=== PATIENT | male | born 1970 | race Caucasian/White ===

== ENCOUNTER 2018-02-22 10:53 | Outpatient (CLI) | payer OTHER ==
[~2018-02-22] VITALS: Ht 185.4 cm; Wt 109.1 kg
--- NOTE | ~2018-02-22 | HEMODYNAMI ---
PATIENT:MY PAEZ MEDICAL RECORD: [id number] : 66 LOCATION:[facility] ADMISSION DATE: 02/22/18 Generatedon:02/22/201813:59 Patient name: MY PAEZ Patient #: [id number] SSN: : 1970 Date of study: 02/22/2018 Page: Of Hemodynamic Procedure Report Patient Data Patient Demographics Procedure consent was obtained First Name: MY Gender: Male Last Name: JEANNINE : 1970 Patient #: [id number] Age: 47 year(s) Race: Unknown Additional ID: [id number] Contact details [address]: [address] [place] [address] State: [place] City: [place] Zip code: [address] Past Medical History Allergies: No known allergies Admission Admission Data Admission Date: 02/22/2018 Admission Time: 10:53 Height (in.): 72.83 BSA: 2.32 (m2) Height (cm.): 185 BMI: 31.85 (kg/m2) Weight (lbs.): 240.31 Weight (kg.): 109 Lab Results Lab Result Date: 02/22/2018 Lab Result Time: 0:00 Biochemistry Name Units Result Min Max BUN mg/dl 13 --(--*-)-- 7 18 Creatinine mg/dl 0.7 --(*---)-- 0.6 1.3 CBC Name Units Result Min Max Hemoglobin g/dl 15.2 --(-*--)-- 13.5 17.5 Procedure Procedure Types Cath Procedure Diagnostic Procedure C LHC w/Coronaries Procedure Description Procedure Date Procedure Date: 02/22/2018 Procedure Start Time: 13:40 Procedure End Time: 13:58 Procedure Staff Name Function Bill May MD Performing Physician Sofie Araujo RT Monitor Malcolm Rivera RN Nurse Estela Feng RT Scrub Sabrina Hanna RN Resistor Tester Procedure Data Cath Procedure Fluoroscopy Diagnostic fluoroscopy Total fluoroscopy Time: 4.3 time: 4.3 min min Diagnostic fluoroscopy Total fluoroscopy dose: 897 dose: 897 mGy mGy Contrast Material Contrast Material Type Amount (ml) Isovue 300 68 Entry Location Entry Primary Successful Side Size Upsize Upsize Entry Closure Gifford ccessful Closure Location (Fr) 1 (Fr) 2 (Fr) Remarks Device Remarks Radial Right 6 Fr Mechanical artery Short Compression Estimated blood loss: 10 ml Diagnostic catheters Device Type Used For End Catheter Placement DIAGNOSTIC Silvino 110cm Procedure 5Fr catheter ([id number]) DIAGNOSTIC [place] 110cm 5 Procedure Fr catheter ([id number]) Procedure Complications No complications Procedure Medications Medication Administration Route Dosage 0.9% NaCl I.V. 100 ml/hr Oxygen etCO2 Nasal cannula 2 l/min Lidocaine 2% added to field 20 Heparin Flush Bag added to field 2 bags (1000units/500ml NS) Radial Cocktail added to field 1 syringe (Verapomil 2mg/Nitro 400mcg/Heparin 1500units) Versed I.V. 2 mg Fentanyl I.V. 50 mcg Versed I.V. 1 mg Fentanyl I.V. 25 mcg Hemodynamics Rest BSA: 2.32 (m2) HGB: 15.2 (g/dl) O2 Consumption: Estimated: 285.12 (ml/min) O2 Co nsumption indexed: Estimated:122.9 (ml/min/m) Heart Rate: 78 (bpm) Pressure Samples Time Site Value (mmHg) Purpose Heart Use Rate(bpm) 13:43 LV 112/-14,7 Snapshot 78 13:44 AO 89/52(65) Pullback 79 13:44 LV 103/-11,5 Pullback 79 Gradients Valve Time Site 1 Site 2 Mean SEP/DFP Peak To Heart Use (mmHg) (sec/min) Peak Rate (mmHg) (bpm) Aortic 13:44 LV AO 6 15 14 79 103/-11,5 89/52(65) Calculations Valve P-P Mean Valve Index Valve Source Name Gradient Area Flow (cm2) Aortic 14 6 14 6 Snapshots Pre Cath Intra NCS Post Cath Vital Signs Time Heart Resp SPO2 etCO2 NIBP Rhythm Pain Sedation Rate (ipm) (%) (mmHg) (mmHg) Status Level (bpm) 13:28:54 76 13 100 36.9 111/74(89) NSR 0 (11) 10(A) , No pain 13:33:02 74 11 98 38.3 112/69(90) NSR 0 (11) 10(A) , No pain 13:37:09 76 12 97 39.8 97/60(75) NSR 0 (11) 10(A) , No pain 13:41:15 76 10 98 38.3 97/60(81) NSR 0 (11) 10(A) , No pain 13:45:23 78 10 97 37.6 96/55(78) NSR 0 (11) 10(A) , No pain 13:49:27 76 11 97 39.1 100/64(82) NSR 0 (11) 10(A) , No pain 13:53:35 74 13 97 36.9 94/61(79) NSR 0 (11) 10(A) , No pain 13:57:38 72 12 98 36.9 108/64(80) NSR 0 (11) 10(A) , No pain Medications Time Medication Route Dose Verified Delivered Reason Notes E ffectiveness by by 13:28:09 0.9% NaCl I.V. 100 Bill Malcolm used for ml/hr Lalo Rivera panel assembler 13:28:28 Oxygen etCO2 2 l/min Bill Sabrina used for Nasal Lalo Hanna procedure cannula RN 13:28:33 Lidocaine 2% added 20ml Bill Bill for local to vial Lalo May MD anesthetic field 13:28:38 Heparin Flush added 2 bags Bill Sabrina used for Bag to Lalo Hanna procedure (1000units/500ml field RN NS) 13:28:46 Radial Cocktail added 1 Bill Bill used for (Verapomil to syringe Lalo May MD procedure 2mg/Nitro field 400mcg/Heparin 1500units) 13:40:35 Versed I.V. 2 mg Bill Sabrina for Lalo Hanna sedation RN 13:40:43 Fentanyl I.V. 50 mcg Bill Sabrina for Lalo Hanna sedation RN 13:46:54 Versed I.V. 1 mg Bill Sabrina for Lalo Hanna sedation RN 13:46:59 Fentanyl I.V. 25 mcg Bill Sabrina for Lalo Hanna sedation boiler helper Log Time Note 12:17:21 Patient Height : 72.83 inches 12:17:29 Patient Weight : 240.31 lbs 12:17:53 Lab Result : BUN 13 mg/dl 12:17:53 Lab Result : Hemoglobin 15.2 g/dl 12:17:53 Lab Result : Creatinine 0.7 mg/dl 12:39:30 Malcolm Rivera RN sent for patient. Start room use. 12:39:31 Time tracking: Regular hours (M-F 7:00 - 5:00) 12:39:35 Plan of Care:Hemodynamics will remain stable., Cardiac rhythm will remain stable., Comfort level will be maintained., Respiratory function will remain adequate., Patient/ family verbilizes understanding of procedure., Procedure tolerated without complication., Recovers from procedure without complications.. 13:22:17 Patient received from Pre/Post Procedure Room to [facility] 2 Alert and oriented. Tansferred to table in Supine position. 13:22:27 Warm blankets applied, and sunitha hugger turned on for patient comfort. 13:22:27 Correct patient and procedure confirmed by team. 13:22:29 Signed procedure consent form obtained from patient. 13:22:30 ECG and BP/O2 sat monitors applied to patient. 13:27:55 Vital chart was started 13:28:09 0.9% NaCl 100 ml/hr I.V. was administered by Malcolm Rivera RN; used for procedure; 13:28:28 Oxygen 2 l/min etCO2 Nasal cannula was administered by Sabrina Hanna RN; used for procedure; 13:28:33 Lidocaine 2% 20ml vial added to field was administered by Bill May MD; for local anesthetic; 13:28:38 Heparin Flush Bag (1000units/500ml NS) 2 bags added to field was administered by Sabrina Hanna RN; used for procedure; 13:28:46 Radial Cocktail (Verapomil 2mg/Nitro 400mcg/Heparin 1500units) 1 syringe added to field was administered by Bill May MD; used for procedure; 13:32:50 Baseline sample Acquired. 13:33:37 Rhythm: sinus rhythm 13:33:41 Full Disclosure recording started 13:33:49 H&P Date Dictated: 02/22/2018 Within 30 days and on chart., H&P Addendum completed by physician on day of procedure. (MUST COMPLETE FOR ALL OUTPATIENTS). 13:33:51 Pre-procedure instructions explained to patient. 13:33:52 Family in waiting room. 13:33:57 Patient NPO since Midnight. 13:34:14 Patient allergic to No known allergies 13:34:18 Is the patient allergic to Iodine/contrast media? No. 13:34:20 Was the patient premedicated? Yes 13:34:21 Is patient on blood thinner?No 13:34:24 Patient diabetic? Yes. 13:34:25 If diabetic: On Metformin? Yes 13:34:29 If on Metformin: Last Dose? 02/21/2018 13:34:38 Snore? Yes 13:34:40 Sleep apnea? No 13:34:47 Patient pain scale 0/10 ?. 13:34:55 IV patent on arrival in left forearm with 0.9% NaCl at [facility]. 13:35:00 Lab results completed and on chart. 13:39:18 Right Radial & Right Groin area was prepped with chlora-prep and draped in sterile fashion 13:39:19 Alarms reviewed by R. N. 13:39:20 Sharps counted by scrub and verified by R.N. 13:39:21 Physician paged 13:39:22 Physician arrived 13:39:24 --------ALL STOP TIME OUT------ 13:39:24 Final Timeout: patient, procedure, and site verified with staff and physician. All members of the team are in agreement. 13:39:27 Right Radial & Right Groin site verified by team. 13:39:30 Physical assessment completed. ASA score P 2 - A patient with mild systemic disease as per Bill May MD. 13:39:34 Sedation plan: IV Moderate Sedation Medication:Versed, Fentanyl 13:39:43 Use device set Radial Dx or PCI 13:39:45 Procedure started. 13:40:07 Local anesthetic to right radial artery with Lidocaine 2% by Bill May MD.INITIAL ACCESS ONLY 13:40:29 A 6 Fr Short sheath was inserted into the Right Radial artery 13:40:35 Versed 2 mg I.V. was administered by Sabrina Hanna RN; for sedation; 13:40:38 ACIST Syringe (97875) opened to sterile field. 13:40:39 Medline Cath Pack ([id number]) opened to sterile field. 13:40:39 Bag Decanter (2002S) opened to sterile field. 13:40:40 DIAGNOSTIC WIRE .035 260cm J wire (655805) opened to sterile field. 13:40:41 ACIST Hand Control (00563) opened to sterile field. 13:40:42 ACIST Manifold (03049) opened to sterile field. 13:40:42 Tegaderm 4 x 4 (1626W) opened to sterile field. 13:40:43 Fentanyl 50 mcg I.V. was administered by Sabrina Hanna RN; for sedation; 13:40:44 MBrace Wrist Support ([id number]) opened to sterile field. 13:40:51 SHEATH 6Fr Prelude Radial ([id number]) opened to sterile field. 13:43:25 A DIAGNOSTIC Silvino 110cm 5Fr catheter (309626) was advanced over the wire and used for Procedure. 13:43:54 EF : 60 % 13:44:38 RCA angiography performed. 13:45:39 Catheter removed. 13:45:50 A DIAGNOSTIC [place] 110cm 5 Fr catheter (243005) was advanced over the wire and used for Procedure. 13:45:54 LCA angiography performed. 13:46:54 Versed 1 mg I.V. was administered by Sabrina Hanna RN; for sedation; 13:46:59 Fentanyl 25 mcg I.V. was administered by Sabrina Hanna RN; for sedation; 13:52:56 Catheter removed. 13:56:25 TR BAND Standard ([id number]) opened to sterile field. 13:56:40 Sheath removed intact; hemostasis achieved with Mechanical Compression to the Right Radial artery. 13:56:43 Procedure ended.(Physican Out) 13:57:01 Fluoroscopy time 04.30 minutes. 13:57:05 Fluoroscopy dose: 897 mGy 13:57:21 Flurop Dose total: 897 13:57:29 Contrast amount:Isovue 300 68ml. 13:57:34 TR band inflated with 10cc of air. 13:57:47 Post-procedure physical assessment completed. ASA score P 2 - A patient with mild systemic disease as per Bill May MD. 13:57:52 Post procedure rhythm: unchanged. 13:57:57 Estimated blood loss: 10 ml 13:57:59 Post procedure instruction explained to patient.Patient verbalizes understanding. 13:58:07 Procedure and supply charges have been captured, reviewed, submitted and are correct. 13:58:31 Procedure Complication : No complications 13:58:34 Vital chart was stopped 13:58:35 See physician's report for complete and final results. 13:58:36 Report given to Pre/Post Procedure Room. 13:58:40 Patient transfered to Pre/Post Procedure Room with Stretcher. 13:58:42 Procedure ended. 13:58:42 Full Disclosure recording stopped 13:58:46 End room use (Document Last) Device Usage Item Name Manufacture Quantity Catalog Number Hospital Part Current M inimal Lot# / Charge Number Stock Stock Serial# Code ACIST Syringe Acist 1 64192 345996 616533 713328 2 0 (75176) [employer] Medline Cath Medline 1 [id number] 763957 23092 944537 5 Pack ([id number]) Bag Decanter Microtek 1 2001S 560393 81743 148829 5 () Medical Inc. DIAGNOSTIC WIRE St Cosmo 1 879679 285917 378587 272781 3 0 .035 260cm J wire (116428) ACIST Hand Acist 1 24383 721747 450592 773104 5 Control (11783) [employer] ACIST Manifold Acist 1 71138 149255 266145 118835 5 (38749) [employer] Tegaderm 4 x 4 3M 1 1626W 521308 875493 282067 5 (1626W) MBrace Wrist Advanced 1 140-0250-00 886617 31446 549975 5 Support Vascular ([id number]) Dynamics SHEATH 6Fr Merit 1 [id number] 324330 912545 882769 5 Prelude Radial Medical ([id number]) DIAGNOSTIC Terumo 1 40-5023 886135 519527 707286 5 Silvino 110cm 5Fr catheter (522550) DIAGNOSTIC Terumo 1 40-5013 742404 388384 684906 5 [place] 110cm 5 Fr catheter (772452) TR BAND Terumo 1 [id number] 297441 924631 432429 4 0 Standard ([id number]) Signature Audit [place] Stage Time Signature Unsigned Intra-Procedure 02/22/2018 Sofie Araujo 1:59:06 PM RT(R) Signatures Monitor : Sofie Araujo Signature : RT Date : Time : [address] [place] [address]
[2018-02-22] MEDS ORDERED: LIPITOR10 MG PO (11:17)
[2018-02-22] MEDS ORDERED: JANUVIA100 MG PO (11:17)
[2018-02-22] MEDS ORDERED: NEURONTIN 300300 MG PO (11:17)
[2018-02-22] MEDS ORDERED: REVATIO20 MG PO (11:18)
[2018-02-22 11:29] VITALS: BP 129/80; Ht 185.4 cm; Wt 109.1 kg
[2018-02-22 11:36] LABS: BASOPHILS 0.1 % (0-2); EOSINOPHILS 1.7 % (0-7); HEMATOCRIT 44.2 % (42.0-54.0); HEMOGLOBIN 15.2 g/dL (13.5-17.5); IMMATURE GRANULOCYTES 0.4 % (0-5); LYMPHOCYTES 36.5 % (15-50); MCH 30.8 pg (26.0-34.0); MCHC 34.4 g/dL (31.0-37.0); MCV 89.5 fL (80.0-100.0); MEAN PLATELET VOLUME 9.5 fL (7.4-10.4); MONOCYTES 10.3 % (2-11); PLATELET COUNT 244 10x3/uL (130-400); RBC 4.94 10x6/uL (4.20-6.10); RDW 12.6 % (11.5-14.5)
[2018-02-22 11:50] LABS: CALC OSMOLALITY 273 mosm/kg (275-300); CARBON DIOXIDE 28.9 mmol/L (21.0-32.0); CHLORIDE - SERUM 102 mmol/L (98-107); CREATININE - SERUM 0.7 mg/dL (0.6-1.3); GLUCOSE 141 mg/dL (74-106); POTASSIUM - SERUM 4.1 mmol/L (3.5-5.1); SODIUM 136 mmol/L (136-145); UREA NITROGEN 13 mg/dL (7-18); eGFR NON AFRICAN AMERICAN > 90 mL/min (90-120)
== END 2018-02-22 16:00 | disposition home or self-care (01) ==
LOC: D.CATH 10:53
PROVIDERS: Internal Medicine Cardiovascular Disease
DX: I25.119 Atherosclerotic heart disease of native coronary artery with unspecified angina pectoris (principal); E11.9 Type 2 diabetes mellitus without complications; Z01.812 Encounter for preprocedural laboratory examination

== ENCOUNTER 2018-03-08 11:06 | Outpatient (CLI) | payer OTHER ==
[~2018-03-08] VITALS: Ht 185.4 cm; Wt 109.1 kg
--- NOTE | ~2018-03-08 | HEMODYNAMI ---
PATIENT:MY PAEZ MEDICAL RECORD: [id number] : 66 LOCATION:[facility] ADMISSION DATE: 03/08/18 Generatedon:03/08/201813:37 Patient name: MY PAEZ Patient #: [id number] SSN: : 1970 Date of study: 03/08/2018 Page: Of Hemodynamic Procedure Report Patient Data Patient Demographics Procedure consent was obtained First Name: MY Gender: Male Last Name: JEANNINE : 1970 Middle Initial: R Age: 47 year(s) Patient #: [id number] Race: Additional ID: [id number] Contact details Address: [address] [place] [address] State: [place] City: [place] Zip code: [address] Past Medical History Allergies: No known allergies Admission Admission Data Admission Date: 03/08/2018 Admission Time: 11:06 Procedure Procedure Types Cath Procedure Diagnostic Procedure FFR/IVUS Intra-Coronary IVUS Initial Sedation Charges Moderate Sedation up to 15 minutes PCI Procedure Coronary Stent Coronary Stent Initial Procedure Description Procedure Date Procedure Date: 03/08/2018 Procedure Start Time: 13:10 Procedure End Time: 13:34 Procedure Staff Name Function Bill May MD Performing Physician Sofie Araujo RT Monitor Estela Feng RT Scrub Sonny Weston RN Nurse Procedure Data Cath Procedure Fluoroscopy Diagnostic fluoroscopy Total fluoroscopy Time: 5 time: 5 min min Diagnostic fluoroscopy Total fluoroscopy dose: dose: 1211 mGy 1211 mGy Contrast Material Contrast Material Type Amount (ml) Isovue 300 83 Entry Location Entry Primary Successful Side Size Upsize Upsize Entry Closure Succes sful Closure Location (Fr) 1 (Fr) 2 (Fr) Remarks Device Remarks Femoral Right 6 Fr Exoseal artery Short Estimated blood loss: 10 ml Procedure Complications No complications Procedure Medications Medication Administration Route Dosage 0.9% NaCl I.V. 100 ml/hr Oxygen etCO2 Nasal cannula 2 l/min Heparin Flush Bag added to field 2 bags (1000units/500ml NS) Lidocaine 2% added to field 20 Versed I.V. 2 mg Fentanyl I.V. 100 mcg Heparin Bolus I.V. 47744 units Nitroglycerin IC/IA I.C. 100 mcg Brilinta P.O. 180 mg Hemodynamics Rest Heart Rate: 77 (bpm) Snapshots Pre Cath Intra NCS Post Cath Vital Signs Time Heart Resp SPO2 etCO2 NIBP Rhythm Pain Sedation Rate (ipm) (%) (mmHg) (mmHg) Status Level (bpm) 12:52:52 77 12 97 0 120/78(95) NSR 0 (11) 10(A) , No pain 12:57:02 82 13 91 39.2 109/68(79) NSR 0 (11) 10(A) , No pain 13:01:14 76 11 96 43.7 106/65(84) NSR 0 (11) 10(A) , No pain 13:05:22 73 16 95 46 102/69(85) NSR 0 (11) 10(A) , No pain 13:09:26 75 13 97 40.7 117/74(84) NSR 0 (11) 10(A) , No pain 13:13:40 76 12 97 43 109/63(78) NSR 0 (11) 10(A) , No pain 13:17:48 80 14 94 45.2 106/69(87) NSR 0 (11) 9(A) , No pain 13:21:56 77 11 96 42.9 116/70(85) NSR 0 (11) 9(A) , No pain 13:26:05 77 11 96 43.7 110/73(84) NSR 0 (11) 9(A) , No pain 13:30:15 82 12 95 39.9 110/60(77) NSR 0 (11) 10(A) , No pain 13:34:25 78 12 96 39.2 105/68(82) NSR 0 (11) 10(A) , No pain Medications Time Medication Route Dose Verified Delivered Reason Note s Effectiveness by by 12:55:41 0.9% NaCl I.V. 100 Sonny Sonny Per physician ml/hr Trista Weston RN RN 12:55:49 Oxygen etCO2 2 Sonny Sonny Per physician Nasal l/min Trista stiles RN RN 12:55:59 Heparin Flush added 2 bags Sonny Sonny used for Bag to Loradriana Trista procedure (1000units/500ml field RN RN NS) 12:56:09 Lidocaine 2% added 20ml Sonny Sonny for local to vial Trista Weston anesthetic RN RN 12:56:21 Versed I.V. 2 mg Sonny Sonny for sedation Trista Weston RN RN 12:56:30 Fentanyl I.V. 100 Sonny Sonny for sedation mcg Trista Weston RN RN 13:11:36 Heparin Bolus I.V. 11,000 Sonny Sonny for units Trista Weston anticoagulation RN RN 13:27:32 Nitroglycerin I.C. 100 Sonny Bill for IC/IA mcg Trista davis RN 13:33:47 Brilinta P.O. 180 mg Sonny Sonny for Trista Weston antiplatelet RN RN therapy Procedure Log Time Note 12:39:37 Informed consent obtained and on chart 12:40:12 Diagnostic Cath Status : Elective 12:40:57 Sonny Weston RN sent for patient. Start room use. 12:40:58 Time tracking: Regular hours (M-F 7:00 - 5:00) 12:41:04 Plan of Care:Hemodynamics will remain stable., Cardiac rhythm will remain stable., Comfort level will be maintained., Respiratory function will remain adequate., Patient/ family verbilizes understanding of procedure., Procedure tolerated without complication., Recovers from procedure without complications.. 12:51:46 Patient received from Pre/Post Procedure Room to CCL 2 Alert and oriented. Tansferred to table in Supine position. 12:51:47 Warm blankets applied, and sunitha hugger turned on for patient comfort. 12:51:48 Correct patient and procedure confirmed by team. 12:51:48 ECG and BP/O2 sat monitors applied to patient. 12:51:49 Vital chart was started 12:51:50 Baseline sample Acquired. 12:51:54 Rhythm: sinus rhythm 12:51:55 Full Disclosure recording started 12:51:59 H&P Date Dictated: 03/08/2018 Within 30 days and on chart., H&P Addendum completed by physician on day of procedure. (MUST COMPLETE FOR ALL OUTPATIENTS). 12:52:00 Pre-procedure instructions explained to patient. 12:52:00 Pre-op teaching completed and patient verbalized understanding. 12:52:02 Family in waiting room. 12:52:03 Patient NPO since Midnight. 12:52:05 Is the patient allergic to Iodine/contrast media? No. 12:52:06 Was the patient premedicated? No 12:52:07 Is patient on blood thinner?No 12:52:08 Patient diabetic? Yes. 12:52:12 Previous problem with sedation/anesthesia? No ? 12:52:15 Snore? No 12:52:16 Sleep apnea? No 12:52:16 Deviated septum? No 12:52:17 Opens mouth fully? Yes 12:52:18 Sticks out tongue? Yes 12:52:20 Airway obstruction? No ? 12:52:22 Dentures? No ? 12:52:25 Pre procedure: right dorsailis pedis pulse 2+ Normal; easily identifiable; not easily obliterated 12:52:28 Pre procedure: left dorsailis pedis pulse 2+ Normal; easily identifiable; not easily obliterated 12:52:30 Patient pain scale 0/10 ?. 12:52:35 IV patent on arrival in left forearm with 0.9% NaCl at [facility]. 12:52:38 Lab results completed and on chart. 12:52:41 Right groin area was prepped with chlora-prep and draped in sterile fashion 12:52:42 Alarms reviewed by R. N. 12:52:42 Sharps counted by scrub and verified by R.N. 12:54:39 Physician arrived 12:54:40 --------ALL STOP TIME OUT------ 12:54:40 Final Timeout: patient, procedure, and site verified with staff and physician. All members of the team are in agreement. 12:54:43 Right groin site verified by team. 12:54:49 Physical assessment completed. ASA score P 2 - A patient with mild systemic disease as per Bill May MD. 12:54:54 Sedation plan: IV Moderate Sedation Medication:Versed, Fentanyl 12:55:00 Use device set Femoral Dx 12:55:41 0.9% NaCl 100 ml/hr I.V. was administered by Sonny Weston RN; Per physician; 12:55:49 Oxygen 2 l/min etCO2 Nasal cannula was administered by Sonny Weston RN; Per physician; 12:55:59 Heparin Flush Bag (1000units/500ml NS) 2 bags added to field was administered by Sonny Weston RN; used for procedure; 12:56:09 Lidocaine 2% 20ml vial added to field was administered by Sonny Weston RN; for local anesthetic; 12:56:21 Versed 2 mg I.V. was administered by Sonny Weston RN; for sedation; 12:56:30 Fentanyl 100 mcg I.V. was administered by Sonny Weston RN; for sedation; 13:01:08 DIAGNOSTIC WIRE .035 260cm J wire (033275) opened to sterile field. 13:01:12 ACIST Hand Control (89815) opened to sterile field. 13:01:13 ACIST Manifold (64471) opened to sterile field. 13:01:21 Tegaderm 4 x 4 (1626W) opened to sterile field. 13:01:24 SHEATH 6FR Blair (TPF884) opened to sterile field. 13:01:28 Amity [place] IVUS Catheter (89878J) opened to sterile field. 13:01:31 BMW 300cm Pitkin 2 J wire ([id number]) opened to sterile field. 13:05:33 Zero performed for pressure channel P1 13:09:28 Procedure started. 13:10:27 Local anesthetic to right femoral artery with Lidocaine 2% by Bill May MD.INITIAL ACCESS ONLY 13:10:37 A 6 Fr Short sheath was inserted into the Right Femoral artery 13:11:25 GUIDE 6FR XBLAD 3.5 catheter ([id number]) opened to sterile field. 13:11:27 ACIST Syringe (67133) opened to sterile field. 13:11:29 Bag Decanter () opened to sterile field. 13:11:30 Medline Cath Pack ([id number]) opened to sterile field. 13:11:36 Heparin Bolus 11,000 units I.V. was administered by Sonny Weston RN; for anticoagulation; 13:11:39 Proceeding to intervention. 13:11:57 6 Fr XBLAD 3.5 guide catheter was inserted over the wire 13:12:36 BMW wire advanced. 13:17:57 IVUS catheter advanced over wire. 13:18:22 IVUS catheter removed over wire. 13:19:41 Wire redirected to CX. 13:25:21 Place stent Inflation Number: 1 A RICKIE OTW 3.0 x 30 stent ([id number]) was prepped and advanced across the Mid CX. The stent was deployed at 14 HARJINDER for 0:17 (min:sec). 13:26:04 Stent catheter was removed intact over wire. 13:27:32 Nitroglycerin IC/IA 100 mcg I.C. was administered by Bill May MD; for vasodilation; 13:30:04 Wire removed. 13:30:05 Guide catheter removed. 13:30:18 EXOSEAL 6Fr (EX600) opened to sterile field. 13:30:55 Sheath removed intact; hemostasis achieved with Exoseal to the Right Femoral artery. 13:31:55 Procedure ended.(Physican Out) 13:32:08 Fluoroscopy time 05.00 minutes. 13:32:37 Fluoroscopy dose: 1211 mGy 13:32:37 Flurop Dose total: 1211 13:32:41 Contrast amount:Isovue 300 83ml. 13:32:43 Sharps counted by scrub and verified by R.N. 13:32:47 Insertion/operative site no bleeding no hematoma. 13:32:51 Post-op/insertion site Right Femoral artery dressed using a 4 x 4 and Tegaderm. 13:32:55 Post right femoral artery:stable 13:33:02 Post-procedure physical assessment completed. ASA score P 2 - A patient with mild systemic disease as per Bill May MD. 13:33:06 Post procedure rhythm: unchanged. 13:33:11 Estimated blood loss: 10 ml 13:33:19 Post procedure instruction explained to patient.Patient verbalizes understanding. 13:33:47 Brilinta 180 mg P.O. was administered by Sonny Weston RN; for antiplatelet therapy; 13:33:58 Procedure type changed to Cath procedure, Diagnostic procedure, FFR/IVUS, Intra-Coronary IVUS Initial, Sedation Charges, Moderate Sedation up to 15 minutes, PCI procedure, Coronary Stent, Coronary Stent Initial 13:34:04 Procedure and supply charges have been captured, reviewed, submitted and are correct. 13:34:44 Procedure Complication : No complications 13:34:47 Vital chart was stopped 13:34:48 See physician's report for complete and final results. 13:34:51 Report given to Pre/Post Procedure Room. 13:34:55 Patient transfered to Pre/Post Procedure Room with Stretcher. 13:34:57 Procedure ended. 13:34:57 Full Disclosure recording stopped 13:35:00 End room use (Document Last) 13:35:55 ACC-PCI Only Patient was given prescriptions, or instructed by Bill May MD to start/continue the following medications upon discharge: Plavix Intervention Summary Intervention Notes Time ActionType Lesion and Equipment Action# Pressure Duration Attributes Used 13:25:21 Place stent Mid CX RICKIE OTW 3.0 1 14 00:17 x 30 stent ([id number]) Device Usage Item Name Manufacture Quantity Catalog Hospital Part Current Mini mal Lot# / Number Charge Number Stock Stock Serial# Code DIAGNOSTIC St Cosmo 1 [id number] 037039 661874 615220 30 WIRE .035 260cm J wire (928653) ACIST Hand Acist 1 47751 217817 736116 186852 5 Control Medical (65976) Systems Inc ACIST Acist 1 94313 190617 640728 176759 5 Manifold Medical (39957) Systems Inc Tegaderm 4 x 3M 1 1626W 116633 207358 147283 5 4 (1626W) SHEATH 6FR Terumo 1 DEI139 642147 906622 972288 40 Blair (UTC991) Amity Amity 1 35424P 876266 596645 139357 8 [place] IVUS Catheter (10595D) BMW 300cm Sanchez 1 [id number] 803324 324151 615176 5 Pitkin 2 J Vascular wire (3109074Q) GUIDE 6FR Cardinal 1 [id number] 005975 019877 927761 10 XBLAD 3.5 Health catheter (79270744) ACIST Syringe Acist 1 69225 036634 912512 322353 20 (42650) Medical Systems Inc Bag Decanter Microtek 1 2001S 670222 40716 213034 5 (2001S) Medical Inc. Medline Cath Medline 1 [id number] 302235 99530 891734 5 Pack ([id number]) RICKIE OTW 3.0 Medtronic 1 [id number] 959601 9460246 015891 5 [id number] x 30 stent ([id number]) EXOSEAL 6Fr Cardinal 1 EX600 220693 970588 534082 10 (EX600) Health Signature Audit [place] Stage Time Signature Unsigned Intra-Procedure 03/08/2018 Sofie Araujo 1:37:43 PM RT(R) Signatures Monitor : Sofie Araujo Signature : RT Date : Time : [id number] [place] [address]
[~2018-03-08 11:06] MED LIST: JANUVIA100 MG PO; LIPITOR10 MG PO; NEURONTIN 300300 MG PO; REVATIO20 MG PO
[2018-03-08 11:34] VITALS: BP 128/82; Ht 185.4 cm; Wt 109.1 kg
[2018-03-08 11:58] LABS: BASOPHILS 0.1 % (0-2); EOSINOPHILS 0.8 % (0-7); HEMATOCRIT 45.2 % (42.0-54.0); HEMOGLOBIN 15.9 g/dL (13.5-17.5); IMMATURE GRANULOCYTES 0.3 % (0-5); LYMPHOCYTES 32.5 % (15-50); MCH 30.9 pg (26.0-34.0); MCHC 35.2 g/dL (31.0-37.0); MCV 87.9 fL (80.0-100.0); MEAN PLATELET VOLUME 9.4 fL (7.4-10.4); NEUTROPHILS 57.3 % (40-80); PLATELET COUNT 254 10x3/uL (130-400); RBC 5.14 10x6/uL (4.20-6.10); RDW 12.5 % (11.5-14.5); WBC 7.9 10x3/uL (4.8-10.8)
[2018-03-08 12:06] LABS: CALC OSMOLALITY 278 mosm/kg (275-300); CALCIUM 9.3 mg/dL (8.5-10.1); CARBON DIOXIDE 26.9 mmol/L (21.0-32.0); CHLORIDE - SERUM 101 mmol/L (98-107); CREATININE - SERUM 0.7 mg/dL (0.6-1.3); GLUCOSE 194 mg/dL (74-106); POTASSIUM - SERUM 4.1 mmol/L (3.5-5.1); SODIUM 136 mmol/L (136-145); UREA NITROGEN 19 mg/dL (7-18); eGFR NON AFRICAN AMERICAN > 90 mL/min (90-120)
[2018-03-08] MEDS ORDERED: BRILINTA90 MG PO (14:01)
== END 2018-03-08 17:33 | disposition home or self-care (01) ==
LOC: D.CATH 11:06
PROVIDERS: Internal Medicine Cardiovascular Disease
DX: I25.119 Atherosclerotic heart disease of native coronary artery with unspecified angina pectoris (principal); Q24.5 Malformation of coronary vessels

== ENCOUNTER → 2020-09-24 07:59 | Outpatient (CLI) | payer BC ==
[2018-03-08 11:34] VITALS: BMI 31.7
[~2020-09-24 07:59] MED LIST changes: +BRILINTA90 MG PO
== END | disposition home or self-care (01) ==
LOC: D.HCCECHO 07:59
PROVIDERS: ATTEND Internal Medicine Cardiovascular Disease
DX: I48.92 Unspecified atrial flutter (principal)